=== PATIENT | male | born 1960 | race African-American/Black ===

== ENCOUNTER 2022-07-01 23:57 | Inpatient (IN) | payer MEDICAID ==
[~2022-07-01] VITALS: Ht 185.4 cm; Wt 125.6 kg
[2022-07-02] VITALS (49 sets, daily range): BP systolic 77–182; BP diastolic 19–103
[2022-07-02] MEDS ORDERED: SODIUM CHLORIDE 0.9% 1,000 ML IV ONE ×3 (01:00→01:15)
[2022-07-02] MEDS ORDERED: HUMAN PROTHROMBIN COMPLX (PCC) 500 UNITS VIAL IV NR (01:45)
[2022-07-02] MEDS ORDERED: HUMAN PROTHROMBIN COMPLX IV NR (01:50)
[2022-07-02 01:52] LABS: HEMATOCRIT. 23.7 % (42.0-52.0); HEMOGLOBIN. 7.5 g/dL (14.0-18.0); MEAN CORPUSCULAR HEMOGLOBIN 27.2 pg (28.0-32.0); MEAN CORPUSCULAR VOLUME 85.6 fL (80.0-94.0); MEAN PLATELET VOLUME 8.1 fl (7.4-10.4); PLATELET 203 x1000/uL (130-400); RED BLOOD CELL COUNT 2.76 mill/uL (4.7-6.1); RED CELL DISTRIBUTION WIDTH 15.3 % (11.6-14.6)
[2022-07-02 02:00] LABS: CHLORIDE 113 mEq/L (98-107)
[2022-07-02 02:19] LABS: INR 1.2; PROTHROMBIN TIME 12.4 sec (9.6-11.0)
[2022-07-02] MEDS ORDERED: DULO60CA64 MT (02:20)
[2022-07-02] MEDS ORDERED: SEMA2PEN (02:21)
[2022-07-02] MEDS ORDERED: BUPR300T52 MT (02:21)
[2022-07-02] MEDS ORDERED: TERB250T88 PO (02:21)
[2022-07-02] MEDS ORDERED: OXYB5TAB17 MT (02:21)
[2022-07-02] MEDS ORDERED: AMLO5TAB88 MT (02:21)
[2022-07-02] MEDS ORDERED: FERR325T23 MT (02:21)
[2022-07-02] MEDS ORDERED: BUME2TAB8 MT (02:21)
[2022-07-02] MEDS ORDERED: CALC0.253 MT (02:21)
[2022-07-02] MEDS ORDERED: BUPR1PAT22 TD (02:21)
[2022-07-02] MEDS ORDERED: APIX5TAB MT (02:21)
[2022-07-02] MEDS ORDERED: T4 PO (02:21)
[2022-07-02] MEDS ORDERED: ZOLP10TA2 MT (02:21)
[2022-07-02 02:27] LABS: PLATELET ESTIMATE NORMAL
[2022-07-02] MEDS ORDERED: IOHEXOL-350 100 ML BOTTLE ONE (06:11)
[2022-07-02] MEDS ORDERED: IPRATROPIUM/ALBUTEROL 0.5-3(2.5)MG/3ML NEB HHN PRN (09:45)
[2022-07-02] MEDS ORDERED: DIPHENHYDRAMINE 50MG/ML VIAL IV PRN (09:45)
[2022-07-02] MEDS ORDERED: CLONIDINE 0.1MG TABLET PO PRN (09:45)
[2022-07-02] MEDS: SODIUM CHLORIDE 0.9% 1,000 ML IV SCH ×2 (10:00→18:02)
[2022-07-02] MEDS ORDERED: INFLUENZA VACCINE 05/PF 0.5 ML SYRINGE IM ONE (10:00)
[2022-07-02] MEDS ORDERED: PNEUMOCOCCAL 23-VAL P-SAC VAC 0.5 ML IM ONE (10:00)
[2022-07-02] MEDS ORDERED: FAMOTIDINE 20MG/2ML VIAL IV SCH (10:15)
[2022-07-02] MEDS: MORPHINE SULFATE 2 MG/ML CPJ (NOT FOR IM USE) IV PRN ×2 (10:19→18:59)
[2022-07-02 10:20] LABS: HEMATOCRIT 24.7 % (42.0-52.0)
[2022-07-02] MEDS: ONDANSETRON HCL 4MG/2ML INJ IV PRN (10:33)
[2022-07-02] MEDS: PANTOPRAZOLE SODIUM 40 MG/VIAL IV SCH ×2 (11:36→20:02)
[2022-07-02 13:25] LABS: CLARITY URINE CLEAR (CLEAR); COLOR URINE YELLOW (YELLOW); KETONES URINE NEGATIVE (NEGATIVE); LEUKOCYTE ESTERASE URINE NEGATIVE (NEGATIVE); NITRITE URINE NEGATIVE (NEGATIVE); OCCULT BLOOD URINE NEGATIVE (NEGATIVE); PH URINE 6.5 (4.5-8.0); PROTEIN URINE NEGATIVE (NEGATIVE); SPECIFIC GRAVITY URINE 1.028 (1.005-1.030); UROBILINOGEN URINE 0.2 E.U./dL (0.2-1.0)
[2022-07-02 13:36] LABS: HEMATOCRIT 22.4 % (42.0-52.0); HEMOGLOBIN 7.2 g/dL (14.0-18.0)
[2022-07-02] MEDS ORDERED: HEPARIN 1000 UNITS/ML 10ML ONE (13:59)
[2022-07-02 14:03] LABS: TOTAL IRON BINDING CAPACITY 162 ug/dL (250-450)
[2022-07-02 14:06] LABS: CREATINE KINASE 52 IU/L (39-308)
[2022-07-02 15:10] LABS: CARCINO EMBRYONIC ANTIGEN 1.4 ng/ml; FERRITIN 243 ng/mL (22-322)
[2022-07-02 16:36] LABS: VITAMIN B12 SERUM 437 pg/mL (211-911)
[2022-07-02 19:06] LABS: HEMATOCRIT 25.6 % (42.0-52.0); HEMOGLOBIN 8.1 g/dL (14.0-18.0)
[2022-07-02] MEDS: ZOLPIDEM TARTRATE 5MG TABLET PO PRN (20:02)
[2022-07-03] VITALS (32 sets, daily range): BP systolic 94–142; BP diastolic 19–89
[2022-07-03 01:00] LABS: HEMATOCRIT 26.8 % (42.0-52.0); HEMOGLOBIN 8.6 g/dL (14.0-18.0)
[2022-07-03] MEDS: SODIUM CHLORIDE 0.9% 1,000 ML IV SCH (02:00)
[2022-07-03] MEDS: MORPHINE SULFATE 2 MG/ML CPJ (NOT FOR IM USE) IV PRN ×2 (03:46→15:29)
[2022-07-03] MEDS: ONDANSETRON HCL 4MG/2ML INJ IV PRN (03:50)
[2022-07-03 04:33] LABS: CHLORIDE 119 mEq/L (98-107); HEMATOCRIT. 23.9 % (42.0-52.0); HEMOGLOBIN. 7.9 g/dL (14.0-18.0); MEAN CORPUSCULAR HEMOGLOBIN 28.9 pg (28.0-32.0); MEAN CORPUSCULAR VOLUME 87.6 fL (80.0-94.0); MEAN PLATELET VOLUME 7.9 fl (7.4-10.4); PLATELET 155 x1000/uL (130-400); RED BLOOD CELL COUNT 2.73 mill/uL (4.7-6.1)
[2022-07-03 07:42] LABS: PLATELET ESTIMATE NORMAL
[2022-07-03] MEDS: PANTOPRAZOLE SODIUM 40 MG/VIAL IV SCH ×2 (08:46→21:06)
[2022-07-03] MEDS: DULOXETINE HCL 60MG DR CAPSULE PO SCH (15:27)
[2022-07-03] MEDS: OXYBUTYNIN CHLORIDE 5MG TABLET PO SCH (16:32)
[2022-07-03 17:45] LABS: HEMATOCRIT 25.2 % (42.0-52.0); HEMOGLOBIN 8.1 g/dL (14.0-18.0)
[2022-07-03] MEDS: ZOLPIDEM TARTRATE 5MG TABLET PO PRN (21:06)
[2022-07-04] VITALS (18 sets, daily range): BP systolic 99–168; BP diastolic 44–98
[2022-07-04] MEDS: MORPHINE SULFATE 2 MG/ML CPJ (NOT FOR IM USE) IV PRN ×2 (04:41→21:46)
[2022-07-04 08:10] LABS: HEMATOCRIT 23.4 % (42.0-52.0); HEMOGLOBIN 7.7 g/dL (14.0-18.0); MEAN CORPUSCULAR HEMOGLOBIN 28.2 pg (28.0-32.0); MEAN CORPUSCULAR VOLUME 85.7 fL (80.0-94.0); PLATELET 138 x1000/uL (130-400); RED BLOOD CELL COUNT 2.73 mill/uL (4.7-6.1); RED CELL DISTRIBUTION WIDTH 17.3 % (11.6-14.6)
[2022-07-04] MEDS: PANTOPRAZOLE SODIUM 40 MG/VIAL IV SCH ×2 (09:18→20:44)
[2022-07-04] MEDS: FERROUS SULFATE 325MG TABLET PO SCH (09:18)
[2022-07-04] MEDS: OXYBUTYNIN CHLORIDE 5MG TABLET PO SCH ×2 (09:19→17:48)
[2022-07-04] MEDS ORDERED: TAMS-11 PO (10:03)
[2022-07-04] MEDS ORDERED: TOLT2TAB18 PO (10:03)
[2022-07-04] MEDS: DULOXETINE HCL 60MG DR CAPSULE PO SCH (11:30)
[2022-07-04] MEDS ORDERED: CITRIC ACID/SODIUM CITRATE SOLN 30ML UDC PO NR (12:30)
[2022-07-04] MEDS: TAMSULOSIN HCL 0.4MG SR CAPSULE PO SCH (12:47)
[2022-07-04] MEDS ORDERED: NALOXONE HCL 0.4MG/ML VIAL IV PRN (15:45)
[2022-07-04] MEDS: ACETAMINOPHEN 325MG TABLET PO PRN (17:48)
[2022-07-04] MEDS ORDERED: BISACODYL 5MG TABLET PO NR ×2 (18:00→22:00)
[2022-07-04] MEDS ORDERED: METOCLOPRAMIDE HCL 10MG/2ML VIAL IV NR ×2 (18:00→22:00)
[2022-07-04] MEDS ORDERED: SORBITOL 70% SOLN 30ML PO NR ×2 (18:30→22:30)
[2022-07-04] MEDS: ZOLPIDEM TARTRATE 5MG TABLET PO PRN (23:25)
[2022-07-05] VITALS (11 sets, daily range): BP systolic 97–140; BP diastolic 69–82
[2022-07-05 06:39] LABS: BASOPHILS % 0.5 % (0.0-2.0); EOSINOPHILS % 2.9 % (0.0-5.0); HEMATOCRIT. 29.3 % (42.0-52.0); INR 1.1; LYMPHOCYTES % 10.6 % (20.0-50.0); MEAN CORPUSCULAR HEMOGLOBIN 28.8 pg (28.0-32.0); MEAN CORPUSCULAR VOLUME 86.2 fL (80.0-94.0); MEAN PLATELET VOLUME 8.3 fl (7.4-10.4); MONOCYTES % 11.1 % (2.0-8.0); NEUTROPHILS % 74.9 % (40.0-76.0); PLATELET 173 x1000/uL (130-400); PROTHROMBIN TIME 11.3 sec (9.6-11.0); RED CELL DISTRIBUTION WIDTH 16.6 % (11.6-14.6)
[2022-07-05 06:58] LABS: HEMOGLOBIN. 9.8 g/dL (14.0-18.0)
[2022-07-05] MEDS: ACETAMINOPHEN 325MG TABLET PO PRN (07:45)
[2022-07-05 07:54] LABS: CHLORIDE 115 mEq/L (98-107)
[2022-07-05] MEDS ORDERED: OXYBUTYNIN CHLORIDE 5MG TABLET PO SCH (09:00)
[2022-07-05] MEDS ORDERED: NON FORMULARY PATIENT HOME MED PO SCH (09:00)
[2022-07-05] MEDS: PANTOPRAZOLE SODIUM 40 MG/VIAL IV SCH ×2 (16:28→20:54)
[2022-07-05] MEDS: TAMSULOSIN HCL 0.4MG SR CAPSULE PO SCH (16:28)
[2022-07-05] MEDS: DULOXETINE HCL 60MG DR CAPSULE PO SCH (16:28)
[2022-07-05] MEDS: OXYBUTYNIN CHLORIDE 5MG TABLET PO SCH (16:29)
[2022-07-05] MEDS: FERROUS SULFATE 325MG TABLET PO SCH (16:29)
[2022-07-05] MEDS: ZOLPIDEM TARTRATE 5MG TABLET PO PRN (22:00)
[2022-07-06] VITALS (8 sets, daily range): BP systolic 102–131; BP diastolic 48–83
[2022-07-06] MEDS: DULOXETINE HCL 60MG DR CAPSULE PO SCH (08:32)
[2022-07-06] MEDS: FERROUS SULFATE 325MG TABLET PO SCH (08:32)
[2022-07-06] MEDS: PANTOPRAZOLE SODIUM 40 MG/VIAL IV SCH ×2 (08:32→20:53)
[2022-07-06] MEDS: OXYBUTYNIN CHLORIDE 5MG TABLET PO SCH ×2 (08:33→16:48)
[2022-07-06] MEDS: TAMSULOSIN HCL 0.4MG SR CAPSULE PO SCH (08:33)
[2022-07-06 10:37] LABS: BASOPHILS % 0.5 % (0.0-2.0); EOSINOPHILS % 3.5 % (0.0-5.0); HEMATOCRIT. 29.9 % (42.0-52.0); HEMOGLOBIN. 9.9 g/dL (14.0-18.0); LYMPHOCYTES % 11.2 % (20.0-50.0); MEAN CORPUSCULAR HEMOGLOBIN 28.6 pg (28.0-32.0); MEAN CORPUSCULAR VOLUME 86.2 fL (80.0-94.0); MEAN PLATELET VOLUME 8.2 fl (7.4-10.4); MONOCYTES % 9.1 % (2.0-8.0); NEUTROPHILS % 75.7 % (40.0-76.0); PLATELET 183 x1000/uL (130-400); RED BLOOD CELL COUNT 3.47 mill/uL (4.7-6.1)
[2022-07-06] MEDS ORDERED: POTASSIUM CHLORIDE 20MEQ TABLET SR PO NR (11:30)
[2022-07-06] MEDS ORDERED: SODIUM CHLORIDE 0.9% 1000ML BAG (SEPSIS BOLUS) IV ONE (16:00)
[2022-07-06] MEDS: LORAZEPAM 0.5MG TABLET PO PRN (17:14)
[2022-07-06] MEDS: SORBITOL 70% SOLN 30ML PO SCH ×2 (17:30→21:30)
[2022-07-06] MEDS ORDERED: METOPROLOL TARTRATE 25MG TABLET PO SCH (21:00)
[2022-07-06 21:37] LABS: PHOSPHORUS 2.7 mg/dL (2.5-4.9)
[2022-07-07] VITALS: BP 107/62
[2022-07-07] MEDS: ZOLPIDEM TARTRATE 5MG TABLET PO PRN (00:39)
[2022-07-07 03:38] LABS: BASOPHILS % 0.5 % (0.0-2.0); EOSINOPHILS % 3.5 % (0.0-5.0); HEMATOCRIT. 26.8 % (42.0-52.0); HEMOGLOBIN. 8.7 g/dL (14.0-18.0); LYMPHOCYTES % 11.6 % (20.0-50.0); MEAN CORPUSCULAR HEMOGLOBIN 28.1 pg (28.0-32.0); MEAN CORPUSCULAR VOLUME 86.1 fL (80.0-94.0); MEAN PLATELET VOLUME 7.7 fl (7.4-10.4); NEUTROPHILS % 73.4 % (40.0-76.0); PLATELET 161 x1000/uL (130-400); RED BLOOD CELL COUNT 3.11 mill/uL (4.7-6.1); RED CELL DISTRIBUTION WIDTH 16.8 % (11.6-14.6)
[2022-07-07 04:00] VITALS: BP 114/64
[2022-07-07 04:04] LABS: INR 1.1; PROTHROMBIN TIME 11.5 sec (9.6-11.0)
[2022-07-07 08:00] VITALS: BP 115/60
[2022-07-07] MEDS ORDERED: SODIUM CHLORIDE 0.9% 1000ML BAG (SEPSIS BOLUS) IV ONE (08:30)
[2022-07-07] MEDS ORDERED: SODIUM CHLORIDE 0.9% 1,000 ML IV SCH (08:45)
[2022-07-07] MEDS: PANTOPRAZOLE SODIUM 40 MG/VIAL IV SCH ×2 (08:50→21:13)
[2022-07-07] MEDS: TAMSULOSIN HCL 0.4MG SR CAPSULE PO SCH (08:50)
[2022-07-07] MEDS: FERROUS SULFATE 325MG TABLET PO SCH (08:51)
[2022-07-07] MEDS: OXYBUTYNIN CHLORIDE 5MG TABLET PO SCH ×2 (08:51→16:02)
[2022-07-07] MEDS: DULOXETINE HCL 60MG DR CAPSULE PO SCH (08:51)
[2022-07-07] MEDS ORDERED: POTASSIUM CHLORIDE 20MEQ TABLET SR PO NR (09:45)
[2022-07-07] MEDS ORDERED: MAGNESIUM 2 G PREMIX 50 ML IV NR (10:00)
[2022-07-07] MEDS: ACETAMINOPHEN 325MG TABLET PO PRN (11:25)
[2022-07-07 12:15] VITALS: BP_SYST 115; BP_SYST 98; BP_DIAS 54; BP_DIAS 60
[2022-07-07] MEDS: HYDROCODONE/ACETAMINOPHEN 5/325MG TABLET PO PRN (15:58)
[2022-07-07] MEDS: METOCLOPRAMIDE HCL 10MG/2ML VIAL IV SCH ×3 (16:02→23:49)
[2022-07-07 16:30] VITALS: BP 101/65
[2022-07-07] MEDS: SORBITOL 70% SOLN 30ML PO SCH ×2 (17:22→21:14)
[2022-07-07] MEDS: SODIUM CHL 0.9% + KCL 20MEQ/L 1,000 ML IV SCH (17:58)
[2022-07-07 20:00] VITALS: BP 105/58
[2022-07-07] MEDS: LORAZEPAM 0.5MG TABLET PO PRN (22:24)
[2022-07-08] VITALS: BP 112/70
[2022-07-08] MEDS ORDERED: ZOLPIDEM TARTRATE 5MG TABLET PO PRN (00:45)
[2022-07-08] MEDS: SORBITOL 70% SOLN 30ML PO SCH ×5 (00:55→16:45)
[2022-07-08 04:00] VITALS: BP 109/67
[2022-07-08] MEDS: SODIUM CHL 0.9% + KCL 20MEQ/L 1,000 ML IV SCH ×3 (04:27→20:20)
[2022-07-08] MEDS: METOCLOPRAMIDE HCL 10MG/2ML VIAL IV SCH ×3 (06:17→17:40)
[2022-07-08 07:33] LABS: BASOPHILS % 0.7 % (0.0-2.0); EOSINOPHILS % 4.1 % (0.0-5.0); HEMATOCRIT. 28.7 % (42.0-52.0); HEMOGLOBIN. 9.5 g/dL (14.0-18.0); LYMPHOCYTES % 14.4 % (20.0-50.0); MEAN CORPUSCULAR HEMOGLOBIN 28.7 pg (28.0-32.0); MEAN CORPUSCULAR VOLUME 86.6 fL (80.0-94.0); MEAN PLATELET VOLUME 8.2 fl (7.4-10.4); MONOCYTES % 10.9 % (2.0-8.0); NEUTROPHILS % 69.9 % (40.0-76.0); PLATELET 196 x1000/uL (130-400); RED BLOOD CELL COUNT 3.32 mill/uL (4.7-6.1); RED CELL DISTRIBUTION WIDTH 17.4 % (11.6-14.6)
[2022-07-08 07:50] LABS: INR 1.1; PROTHROMBIN TIME 11.6 sec (9.6-11.0)
[2022-07-08 08:00] VITALS: BP 110/51
[2022-07-08] MEDS: PANTOPRAZOLE SODIUM 40 MG/VIAL IV SCH ×2 (08:59→20:20)
[2022-07-08] MEDS: FERROUS SULFATE 325MG TABLET PO SCH (08:59)
[2022-07-08] MEDS: TAMSULOSIN HCL 0.4MG SR CAPSULE PO SCH (09:01)
[2022-07-08] MEDS: DULOXETINE HCL 60MG DR CAPSULE PO SCH (09:01)
[2022-07-08] MEDS: OXYBUTYNIN CHLORIDE 5MG TABLET PO SCH ×2 (09:01→17:40)
[2022-07-08] MEDS: HYDROCODONE/ACETAMINOPHEN 5/325MG TABLET PO PRN ×2 (11:44→16:25)
[2022-07-08 12:00] VITALS: BP 122/69
[2022-07-08] MEDS ORDERED: MIDAZOLAM HCL 2 MG/2 ML VIAL ONE (14:06)
[2022-07-08] MEDS ORDERED: DEXAMETHASONE 4MG/ML 1ML VIAL ONE (14:06)
[2022-07-08] MEDS ORDERED: PROPOFOL 200MG/20ML VIAL IV ONE ×2 (14:06→14:35)
[2022-07-08] MEDS ORDERED: ONDANSETRON HCL 4MG/2ML INJ ONE (14:16)
[2022-07-08] MEDS ORDERED: FENTANYL CITRATE/PF 50MCG/ML 2ML VIAL ONE (14:16)
[2022-07-08] MEDS: ACETAMINOPHEN 325MG TABLET PO PRN (15:39)
[2022-07-08 16:00] VITALS: BP 119/68
[2022-07-08 19:49] VITALS: BP 103/67
[2022-07-08] MEDS: ZOLPIDEM TARTRATE 5MG TABLET PO PRN (21:20)
[2022-07-09] VITALS: BP 104/69
[2022-07-09] MEDS: METOCLOPRAMIDE HCL 10MG/2ML VIAL IV SCH ×2 (01:02→05:44)
[2022-07-09 03:50] VITALS: BP 114/65
[2022-07-09] MEDS: HYDROCODONE/ACETAMINOPHEN 5/325MG TABLET PO PRN (05:37)
[2022-07-09 07:00] LABS: BASOPHILS % 0.5 % (0.0-2.0); EOSINOPHILS % 1.4 % (0.0-5.0); HEMOGLOBIN. 9.3 g/dL (14.0-18.0); LYMPHOCYTES % 11.4 % (20.0-50.0); MEAN CORPUSCULAR HEMOGLOBIN 28.5 pg (28.0-32.0); MEAN CORPUSCULAR VOLUME 86.2 fL (80.0-94.0); MONOCYTES % 7.4 % (2.0-8.0); NEUTROPHILS % 79.3 % (40.0-76.0); PLATELET 200 x1000/uL (130-400); RED BLOOD CELL COUNT 3.25 mill/uL (4.7-6.1); RED CELL DISTRIBUTION WIDTH 16.9 % (11.6-14.6)
[2022-07-09 08:00] VITALS: BP 104/65
[2022-07-09] MEDS: FERROUS SULFATE 325MG TABLET PO SCH (09:14)
[2022-07-09] MEDS: ACETAMINOPHEN 325MG TABLET PO PRN ×2 (09:14→16:51)
[2022-07-09] MEDS: DULOXETINE HCL 60MG DR CAPSULE PO SCH (09:15)
[2022-07-09] MEDS: PANTOPRAZOLE SODIUM 40 MG/VIAL IV SCH ×2 (09:16→20:57)
[2022-07-09] MEDS: TAMSULOSIN HCL 0.4MG SR CAPSULE PO SCH (09:16)
[2022-07-09] MEDS: OXYBUTYNIN CHLORIDE 5MG TABLET PO SCH ×2 (09:16→17:03)
[2022-07-09] MEDS: SODIUM CHL 0.9% + KCL 20MEQ/L 1,000 ML IV SCH ×2 (11:02→19:53)
[2022-07-09 12:00] VITALS: BP 109/70
[2022-07-09 16:00] VITALS: BP 108/68
[2022-07-09] MEDS: LORAZEPAM 0.5MG TABLET PO PRN (17:01)
[2022-07-09] MEDS ORDERED: NALOXONE HCL 0.4MG/ML VIAL IV PRN (17:15)
[2022-07-09 20:00] VITALS: BP 121/70
[2022-07-09] MEDS: ZOLPIDEM TARTRATE 5MG TABLET PO PRN (20:57)
[2022-07-09] MEDS: METOPROLOL TARTRATE 25MG TABLET PO SCH (20:57)
[2022-07-09 21:02] LABS: HEMATOCRIT 27.9 % (42.0-52.0); HEMOGLOBIN 8.6 g/dL (14.0-18.0)
[2022-07-10] VITALS: BP 105/72
[2022-07-10 01:05] LABS: HEMATOCRIT 27.1 % (42.0-52.0); HEMOGLOBIN 8.8 g/dL (14.0-18.0)
[2022-07-10 04:00] VITALS: BP 100/70
[2022-07-10] MEDS: SODIUM CHL 0.9% + KCL 20MEQ/L 1,000 ML IV SCH ×2 (04:47→16:54)
[2022-07-10] MEDS: HYDROCODONE/ACETAMINOPHEN 5/325MG TABLET PO PRN ×3 (04:49→21:28)
[2022-07-10 06:04] LABS: BASOPHILS % 0.5 % (0.0-2.0); EOSINOPHILS % 2.1 % (0.0-5.0); HEMATOCRIT. 26.6 % (42.0-52.0); HEMOGLOBIN. 8.7 g/dL (14.0-18.0); LYMPHOCYTES % 9.1 % (20.0-50.0); MEAN CORPUSCULAR HEMOGLOBIN 28.3 pg (28.0-32.0); MEAN CORPUSCULAR VOLUME 86.8 fL (80.0-94.0); MONOCYTES % 8.4 % (2.0-8.0); NEUTROPHILS % 79.9 % (40.0-76.0); PLATELET 179 x1000/uL (130-400); RED BLOOD CELL COUNT 3.07 mill/uL (4.7-6.1); RED CELL DISTRIBUTION WIDTH 16.9 % (11.6-14.6)
[2022-07-10 08:00] VITALS: BP 98/55
[2022-07-10] MEDS: PANTOPRAZOLE SODIUM 40 MG/VIAL IV SCH ×2 (08:16→21:28)
[2022-07-10] MEDS: TAMSULOSIN HCL 0.4MG SR CAPSULE PO SCH (08:20)
[2022-07-10] MEDS: FERROUS SULFATE 325MG TABLET PO SCH (08:20)
[2022-07-10] MEDS: OXYBUTYNIN CHLORIDE 5MG TABLET PO SCH ×2 (08:21→16:54)
[2022-07-10] MEDS: METOPROLOL TARTRATE 25MG TABLET PO SCH ×2 (08:21→21:28)
[2022-07-10] MEDS: DULOXETINE HCL 60MG DR CAPSULE PO SCH (08:21)
[2022-07-10] MEDS ORDERED: EPINEPHRINE 0.1MG/ML (1:10,000) 10ML SYR ONE (10:00)
[2022-07-10 12:00] VITALS: BP 111/70
[2022-07-10 13:07] LABS: HEMATOCRIT 26.2 % (42.0-52.0); HEMOGLOBIN 8.5 g/dL (14.0-18.0)
[2022-07-10 16:00] VITALS: BP 116/65
[2022-07-10 21:15] VITALS: BP 115/51
[2022-07-10] MEDS: ZOLPIDEM TARTRATE 5MG TABLET PO PRN (23:49)
[2022-07-11] VITALS: BP 120/81
[2022-07-11] MEDS: SODIUM CHL 0.9% + KCL 20MEQ/L 1,000 ML IV SCH ×3 (01:30→21:30)
[2022-07-11] MEDS: HYDROCODONE/ACETAMINOPHEN 5/325MG TABLET PO PRN ×2 (03:53→22:20)
[2022-07-11 04:00] VITALS: BP 124/77
[2022-07-11] MEDS: LORAZEPAM 0.5MG TABLET PO PRN ×2 (04:05→14:55)
[2022-07-11 07:27] LABS: BASOPHILS % 0.5 % (0.0-2.0); EOSINOPHILS % 3.7 % (0.0-5.0); HEMATOCRIT. 25.4 % (42.0-52.0); HEMOGLOBIN. 8.1 g/dL (14.0-18.0); LYMPHOCYTES % 10.8 % (20.0-50.0); MEAN CORPUSCULAR HEMOGLOBIN 27.8 pg (28.0-32.0); MEAN CORPUSCULAR VOLUME 86.6 fL (80.0-94.0); MONOCYTES % 9.3 % (2.0-8.0); NEUTROPHILS % 75.7 % (40.0-76.0); PLATELET 180 x1000/uL (130-400); RED BLOOD CELL COUNT 2.93 mill/uL (4.7-6.1); RED CELL DISTRIBUTION WIDTH 16.5 % (11.6-14.6)
[2022-07-11 07:46] LABS: CHLORIDE 113 mEq/L (98-107)
[2022-07-11 08:00] VITALS: BP 106/60
[2022-07-11] MEDS: PANTOPRAZOLE SODIUM 40 MG/VIAL IV SCH ×2 (08:39→21:45)
[2022-07-11] MEDS: TAMSULOSIN HCL 0.4MG SR CAPSULE PO SCH (08:40)
[2022-07-11] MEDS: DULOXETINE HCL 60MG DR CAPSULE PO SCH (08:41)
[2022-07-11] MEDS: OXYBUTYNIN CHLORIDE 5MG TABLET PO SCH ×2 (08:41→17:57)
[2022-07-11] MEDS: METOPROLOL TARTRATE 25MG TABLET PO SCH ×2 (08:42→21:00)
[2022-07-11] MEDS: FERROUS SULFATE 325MG TABLET PO SCH (08:42)
[2022-07-11 12:00] VITALS: BP 100/55
[2022-07-11 16:03] VITALS: BP 106/69
[2022-07-11] MEDS ORDERED: BISACODYL 5MG TABLET PO PRN (17:15)
[2022-07-11 20:28] VITALS: BP 105/60
[2022-07-11] MEDS: ZOLPIDEM TARTRATE 5MG TABLET PO PRN (22:20)
[2022-07-12] VITALS: BP 138/82
[2022-07-12 05:24] VITALS: BP 136/82
[2022-07-12 06:05] LABS: BASOPHILS % 0.7 % (0.0-2.0); EOSINOPHILS % 3.3 % (0.0-5.0); HEMATOCRIT. 26.8 % (42.0-52.0); HEMOGLOBIN. 8.9 g/dL (14.0-18.0); LYMPHOCYTES % 12.2 % (20.0-50.0); MEAN CORPUSCULAR HEMOGLOBIN 28.4 pg (28.0-32.0); MEAN CORPUSCULAR VOLUME 85.7 fL (80.0-94.0); MEAN PLATELET VOLUME 8.2 fl (7.4-10.4); MONOCYTES % 7.8 % (2.0-8.0); PLATELET 197 x1000/uL (130-400); RED BLOOD CELL COUNT 3.12 mill/uL (4.7-6.1); RED CELL DISTRIBUTION WIDTH 16.6 % (11.6-14.6)
[2022-07-12 07:46] LABS: CHLORIDE 110 mEq/L (98-107)
[2022-07-12 08:00] VITALS: BP 108/55
[2022-07-12] MEDS: METOPROLOL TARTRATE 25MG TABLET PO SCH ×2 (09:00→21:00)
[2022-07-12] MEDS: DULOXETINE HCL 60MG DR CAPSULE PO SCH (10:53)
[2022-07-12] MEDS: PANTOPRAZOLE SODIUM 40 MG/VIAL IV SCH ×2 (10:53→21:27)
[2022-07-12] MEDS: OXYBUTYNIN CHLORIDE 5MG TABLET PO SCH ×2 (10:53→18:03)
[2022-07-12] MEDS: FERROUS SULFATE 325MG TABLET PO SCH (10:53)
[2022-07-12] MEDS: TAMSULOSIN HCL 0.4MG SR CAPSULE PO SCH (10:54)
[2022-07-12] MEDS: SODIUM CHL 0.9% + KCL 20MEQ/L 1,000 ML IV SCH ×2 (10:55→17:56)
[2022-07-12] MEDS: HYDROCODONE/ACETAMINOPHEN 5/325MG TABLET PO PRN (11:15)
[2022-07-12 12:00] VITALS: BP 111/59
[2022-07-12 16:00] VITALS: BP 113/60
[2022-07-12 21:05] VITALS: BP 107/68
[2022-07-12] MEDS: ZOLPIDEM TARTRATE 5MG TABLET PO PRN (21:27)
[2022-07-12] MEDS: ACETAMINOPHEN 325MG TABLET PO PRN (21:34)
[2022-07-13] VITALS: BP 110/65
[2022-07-13] MEDS: SODIUM CHL 0.9% + KCL 20MEQ/L 1,000 ML IV SCH ×2 (03:30→13:30)
[2022-07-13 04:00] VITALS: BP 95/54
[2022-07-13 07:10] LABS: BASOPHILS % 0.8 % (0.0-2.0); EOSINOPHILS % 2.9 % (0.0-5.0); HEMATOCRIT. 26.5 % (42.0-52.0); HEMOGLOBIN. 8.7 g/dL (14.0-18.0); MEAN CORPUSCULAR HEMOGLOBIN 28.1 pg (28.0-32.0); MEAN CORPUSCULAR VOLUME 85.6 fL (80.0-94.0); MEAN PLATELET VOLUME 8.2 fl (7.4-10.4); MONOCYTES % 9.9 % (2.0-8.0); NEUTROPHILS % 78.4 % (40.0-76.0); PLATELET 208 x1000/uL (130-400); RED CELL DISTRIBUTION WIDTH 16.4 % (11.6-14.6)
[2022-07-13 08:00] VITALS: BP 114/80
[2022-07-13 08:11] LABS: CHLORIDE 112 mEq/L (98-107)
[2022-07-13] MEDS: PANTOPRAZOLE SODIUM 40 MG/VIAL IV SCH (09:00)
[2022-07-13] MEDS: METOPROLOL TARTRATE 25MG TABLET PO SCH (09:00)
[2022-07-13] MEDS ORDERED: NALOXONE HCL 0.4MG/ML VIAL IV PRN (09:00)
[2022-07-13] MEDS ORDERED: HYDROCODONE/ACETAMINOPHEN 5/325MG TABLET PO PRN (09:00)
[2022-07-13] MEDS: FERROUS SULFATE 325MG TABLET PO SCH (09:14)
[2022-07-13] MEDS: TAMSULOSIN HCL 0.4MG SR CAPSULE PO SCH (09:14)
[2022-07-13] MEDS: OXYBUTYNIN CHLORIDE 5MG TABLET PO SCH (09:14)
[2022-07-13] MEDS: DULOXETINE HCL 60MG DR CAPSULE PO SCH (09:14)
[2022-07-13 12:00] VITALS: BP 120/81
[2022-07-13] MEDS ORDERED: PANT40TA51 MT (12:38)
[2022-07-13] MEDS: ACETAMINOPHEN 325MG TABLET PO PRN (15:39)
[2022-07-13 16:00] VITALS: BP 107/70
== END 2022-07-13 16:25 | disposition home or self-care (01) | DRG 254 ==
LOC: ER 23:57 → MICUSO 07-02 03:22 → ENRESERV 07-02 03:52 → 5EST 07-04 00:36 → 8WST 07-06 06:02
PROVIDERS: ADMIT Internal Medicine; ATTEND Internal Medicine
PROC: 30233N1 Transfusion of Nonautologous Red Blood Cells into Peripheral Vein, Percutaneous Approach (ICD-10-PCS; 2022-07-02)
PROC: 0W3P8ZZ Control Bleeding in Gastrointestinal Tract, Via Natural or Artificial Opening Endoscopic (ICD-10-PCS; principal; 2022-07-08)
PROC: 3E0H8GC Introduction of Other Therapeutic Substance into Lower GI, Via Natural or Artificial Opening Endoscopic (ICD-10-PCS; 2022-07-08)
DX: K63.3 Ulcer of intestine (principal); R57.8 Other shock; N17.0 Acute kidney failure with tubular necrosis; I13.0 Hypertensive heart and chronic kidney disease with heart failure and stage 1 through stage 4 chronic kidney disease, or unspecified chronic kidney disease; E43 Unspecified severe protein-calorie malnutrition; E87.20 Acidosis, unspecified; I95.9 Hypotension, unspecified; I50.9 Heart failure, unspecified; D73.89 Other diseases of spleen; K76.89 Other specified diseases of liver; I47.1 Supraventricular tachycardia; E86.9 Volume depletion, unspecified; N18.9 Chronic kidney disease, unspecified; F32.A Depression, unspecified; E78.00 Pure hypercholesterolemia, unspecified; E87.5 Hyperkalemia; R00.1 Bradycardia, unspecified; D50.0 Iron deficiency anemia secondary to blood loss (chronic); E86.0 Dehydration; K57.30 Diverticulosis of large intestine without perforation or abscess without bleeding; I34.0 Nonrheumatic mitral (valve) insufficiency; F41.9 Anxiety disorder, unspecified; Z20.822 Contact with and (suspected) exposure to COVID-19; T45.515A Adverse effect of anticoagulants, initial encounter; E66.01 Morbid (severe) obesity due to excess calories; Z92.3 Personal history of irradiation; Z86.718 Personal history of other venous thrombosis and embolism; Z95.828 Presence of other vascular implants and grafts; Z79.01 Long term (current) use of anticoagulants; Z85.46 Personal history of malignant neoplasm of prostate; Z85.528 Personal history of other malignant neoplasm of kidney; Z90.5 Acquired absence of kidney; Z88.8 Allergy status to other drugs, medicaments and biological substances; Z79.899 Other long term (current) drug therapy; Z68.36 Body mass index [BMI] 36.0-36.9, adult; Y92.89 Other specified places as the place of occurrence of the external cause
CPT/HCPCS: 36415; 74018; 74174; 76770; 78278; 80048; 80053; 81003; 82270; 82378; 82550; 82607; 82728; 82746; 83540; 83550; 83605; 83735; 84100; 84153; 84484; 85014; 85018; 85025; 85027; 85044; 86850; 86900; 86920; 87426; 90686; 90732; 93005; 93306; 93970; 99291; A9560; C9113; C9132; J1100; J1200; J1644; J2250; J2270; J2405; J2704; J2765; J3010; J3475; J3480; J3490; J7030; P9016; Q9967; G0103